=== PATIENT | male | born 1955 | race Hispanic/Latino ===

== ENCOUNTER 2021-03-27 18:24 | Emergency (ER) | payer MEDICARE, OTHER ==
[~2021-03-27] VITALS: Ht 175.3 cm; Wt 104.3 kg
[2021-03-27] MEDS ORDERED: HYDROCODONE/APAP 5MG-325MG TAB PO ONE (19:00)
[2021-03-27] MEDS ORDERED: IBUPROFEN600 MG PO (20:38)
[2021-03-27] MEDS ORDERED: ULTRAM 50MG50 MG PO (21:00)
== END 2021-03-27 20:25 | disposition home or self-care (01) ==
LOC: ER 18:37
DX: S42.402A Unspecified fracture of lower end of left humerus, initial encounter for closed fracture (principal); W01.0XXA Fall on same level from slipping, tripping and stumbling without subsequent striking against object, initial encounter; Y93.01 Activity, walking, marching and hiking; Y92.89 Other specified places as the place of occurrence of the external cause
CPT/HCPCS: 99284